=== PATIENT | female | born 1985 | race Caucasian/White ===

== ENCOUNTER → 2023-02-06 09:22 | Outpatient (CLI) | payer OTHER, SELFPAY | PROVIDERS: PCP Nurse Practitioner; Referring Provider Nurse Practitioner; Visit Provider Nurse Practitioner | DX: Z34.90 Encounter for supervision of normal pregnancy, unspecified, unspecified trimester (principal) | CPT/HCPCS: 36415; 84702 ==

== ENCOUNTER → 2023-02-10 09:26 | Outpatient (CLI) | payer OTHER, SELFPAY ==
[2023-02-10 10:56] LABS: HCG Quantitative /Beta subunit 1335.3 mIU/mL
[2023-02-10 11:07] LABS: Thyroid Stimulating Hormone 1.27 uIU/mL (0.47-4.68)
== END ==
PROVIDERS: PCP Nurse Practitioner; Referring Provider Nurse Practitioner; Visit Provider Nurse Practitioner
DX: Z31.41 Encounter for fertility testing (principal)
CPT/HCPCS: 36415; 84443; 84702

== ENCOUNTER → 2023-03-30 14:47 | Outpatient (CLI) | payer OTHER, SELFPAY ==
[2023-03-30 15:22] LABS: Miscellaneous to LabCorp NATERA
[2023-03-30 16:06] LABS: Add Manual Diff / Slide Review NO; Basophils Absolute Auto 0 /uL (0-100); Basophils Percent Auto 0.2 % (0-2); Eosinophils Absolute Auto 200 /uL (0-450); Eosinophils Percent Auto 2.2 % (2-4); Hematocrit 38.2 % (36-46); Hemoglobin 13.5 g/dL (12.0-16.0); Lymphocytes Absolute Auto 2100 /uL (1100-4500); Lymphocytes Percent Auto 20.3 % (25-40); Mean Corpuscular HGB Conc 35.3 % (30-36); Mean Corpuscular Hemoglobin 29.8 PG (26-34); Mean Corpuscular Volume 84.4 fL (80-100); Monocytes Absolute Auto 700 /uL (0-900); Monocytes Percent Auto 6.3 % (3-14); Neutrophils Absolute Auto 7400 /uL (1500-7000); Platelet Count 266 X10^3/uL (150-400); Red Blood Cell Count 4.52 X10^6/uL (4.0-5.2); Red Cell Distribution Width 13.2 % (11.6-14.8); White Blood Cell Count 10.5 X10^3/uL (4.5-11.0)
[2023-03-30 19:26] LABS: Urine N gonorrhoeae NOT DETECTED
[2023-03-30 19:35] LABS: Urine Chlamydia NOT DETECTED
[2023-03-31 08:26] LABS: RPR Screen Non Reactive (Non Reactive)
[2023-03-31 09:12] LABS: Varicella IgG Antibody 1518 index (Immune >165)
[2023-03-31 20:46] LABS: Hepatitis B Surface Antigen NEGATIVE s/c (NEGATIVE); Rubella Antibody IgG 63.1 IU/mL (>15)
[2023-03-31 21:02] LABS: HIV 1 & 2 Ab/Ag 4th Gen Combo NEGATIVE (NEGATIVE); Hep C Virus Ab w/Reflex Quant NEGATIVE s/c (NEGATIVE)
== END ==
PROVIDERS: Obstetrics & Gynecology; PCP Nurse Practitioner; Referring Provider Student in an Organized Health Care Education/Training Program; Visit Provider Student in an Organized Health Care Education/Training Program
DX: O09.511 Supervision of elderly primigravida, first trimester (principal); O09.819 Supervision of pregnancy resulting from assisted reproductive technology, unspecified trimester; Z3A.12 12 weeks gestation of pregnancy
CPT/HCPCS: 80055; 86787; 86803; 86850; 86900; 86901; 87086; 87389; 87491; 87591

== ENCOUNTER → 2023-05-22 10:48 | Outpatient (CLI) | payer OTHER, SELFPAY ==
[2023-05-29 12:07] LABS: AFP Value 31.8 ng/mL (.); Gestational Age EDD (.); Insulin Dep Diabetes No (.); OSBR Risk 1IN 10000 (.); Results Report (.); Test Results *Screen Negative* (.)
== END ==
LOC: LAB 10:50
PROVIDERS: PCP Nurse Practitioner; Referring Provider Student in an Organized Health Care Education/Training Program; Visit Provider Student in an Organized Health Care Education/Training Program
DX: Z34.02 Encounter for supervision of normal first pregnancy, second trimester (principal); Z3A.16 16 weeks gestation of pregnancy
CPT/HCPCS: 36415; 82105

== ENCOUNTER → 2023-05-27 14:09 | Outpatient (CLI) | payer OTHER, SELFPAY ==
--- NOTE | 2023-05-27 14:11 | DI.US.S_ITS ---
PROCEDURE: US OB >= 14 WEEKS FETUS INDICATIONS: ANATOMY OUTSIDE/PRIOR DATING DATA: Last menstrual period (LMP): 01/09/2023. LMP-based estimated date of delivery (MITCH): 10/16/2023. First dating scan (date and location): 02/27/2023. Estimated date of delivery (MITCH) from first dating scan: 10/17/2023. The calculations are made using the working MITCH of 10/16/2023. TECHNIQUE: Real-time scanning was performed of the fetus, with image documentation and biometric measurements. Endovaginal scanning: Not performed COMPARISON: None. FINDINGS: General: A single living intrauterine gestation is present. Presentation: Breech. Placenta: Placental position is anterior , without previa. Amniotic fluid index: 19.1 cm, normal range is 5-24 cm. . heart rate: 162 beats per minute. Maternal cervical canal: 2.8 cm long. Normal lower limit is 2.5 cm. biometrics: Biparietal diameter: 4.6 cm, 20 weeks 0 days Head circumference: 17.1 cm, 19 weeks 5 days Abdominal circumference: 15.4 cm, 20 weeks 4 days Femur length: 3.4 cm, 20 weeks 3 days Clinically estimated gestational age: 19 weeks 5 days Composite gestational age from present scan: 20 weeks 1 day Estimated weight and percentile: 354 g, 85th percentile Anatomic survey: Neuro: Ventricles are non-dilated at less than 10 mm. Cisterna magna is normal at 3-11 mm. Cerebellum is normal in size and morphology. Nuchal skin fold: Normal at less than 6 mm between 14-21 weeks gestational age. Face: Nose and lips are normal. Facial profile grossly within normal limits. Limited evaluation of mandible in chin secondary to lie. Spine: Sacral spine not well seen Heart: Outflow tracks within normal limits. 4 chamber view not well seen. Diaphragm: Diaphragm is intact. Stomach: Abdominal situs not well identified. Question double bubble appearance of stomach Kidneys: Bilateral kidneys not well seen Cord: Three-vessel cord not well seen Bladder: Normal in size. Extremities: All 4 extremities identified. Technically difficult study secondary to severe anti flexion of the uterus at the cervix with the fetus in sergio breech for most of the study. The cervix is borderline short, measuring 2.8 cm. IMPRESSION: 1. Living 2nd trimester intrauterine . Current age correlates with clinical age. 2. Highly challenging study technically secondary to lie and angulation of uterus. Findings include inability to determine situs, possible pleural effusion, possible double bubble appearance of stomach. Additionally, kidneys and three-vessel cord not well seen. Sacral spine not well seen. Additionally, cervical length is near lower limits of normal. Comment: Recommend referral to a tertiary center for repeat anatomy study. We strive to produce accurate, complete, and clear reports of imaging services. To assist us in improving patient care, this report was composed using standard report templates and voice recognition software. Therefore, it may contain abnormal punctuation, insertions and/or omissions. Occasional wrong-word or sound-alike substitutions may occur. Though we review the report and make efforts to correct it, we do recommend that the report be read carefully in proper context to recognize any text inaccuracies. Dictated by: Hawk Vogel M.D. on 05/27/2023 at 17:38 Approved by: Hawk Vogel M.D. on 05/27/2023 at 17:48
== END ==
PROVIDERS: PCP Nurse Practitioner; Referring Provider Student in an Organized Health Care Education/Training Program; Visit Provider Student in an Organized Health Care Education/Training Program
DX: Z34.02 Encounter for supervision of normal first pregnancy, second trimester (principal); Z3A.20 20 weeks gestation of pregnancy
CPT/HCPCS: 76811; 76817

== ENCOUNTER → 2023-08-06 09:01 | Outpatient (CLI) | payer OTHER, SELFPAY ==
[2023-08-06 11:30] LABS: Hemoglobin 11.3 g/dL (12.0-16.0)
[2023-08-06 20:22] LABS: GTT (PREG) 1 Hour PP 50gm Dose 129 mg/dL (76-139)
== END ==
PROVIDERS: PCP Nurse Practitioner; Referring Provider Student in an Organized Health Care Education/Training Program; Visit Provider Student in an Organized Health Care Education/Training Program
DX: Z34.02 Encounter for supervision of normal first pregnancy, second trimester (principal); Z3A.26 26 weeks gestation of pregnancy
CPT/HCPCS: 36415; 82950; 85014; 85018

== ENCOUNTER 2023-09-01 16:04 | Outpatient (CLI) | payer OTHER, SELFPAY ==
[2023-09-01] MEDS: BETAMETHASONE 30 MG/5 ML MDV 12 MG IM (16:21)
== END 2023-09-01 16:30 | disposition home or self-care (01) ==
LOC: LABOR 16:35 → OB 09-02 08:26
PROVIDERS: PCP Nurse Practitioner; Referring Provider Student in an Organized Health Care Education/Training Program; Visit Provider Student in an Organized Health Care Education/Training Program
DX: O09.813 Supervision of pregnancy resulting from assisted reproductive technology, third trimester (principal); O09.513 Supervision of elderly primigravida, third trimester; O41.03X0 Oligohydramnios, third trimester, not applicable or unspecified; Z3A.33 33 weeks gestation of pregnancy
CPT/HCPCS: 96372; G0378; G0379; J0702

== ENCOUNTER 2023-09-02 16:07 | Outpatient (CLI) | payer OTHER, SELFPAY ==
[2023-09-02] MEDS: BETAMETHASONE 30 MG/5 ML MDV 12 MG IM (16:50)
== END 2023-09-02 17:08 | disposition home or self-care (01) ==
LOC: OB 09-07 06:17
PROVIDERS: PCP Nurse Practitioner; Referring Provider Student in an Organized Health Care Education/Training Program; Visit Provider Student in an Organized Health Care Education/Training Program
DX: O09.513 Supervision of elderly primigravida, third trimester (principal); O41.03X0 Oligohydramnios, third trimester, not applicable or unspecified; O09.813 Supervision of pregnancy resulting from assisted reproductive technology, third trimester; Z3A.33 33 weeks gestation of pregnancy
CPT/HCPCS: 59025; 96372; G0378; G0379; J0702

== ENCOUNTER 2023-09-10 10:03 | Observation (INO) | payer OTHER, SELFPAY ==
--- NOTE | 2023-09-10 10:06 | DI.US.S_ITS ---
PROCEDURE: US OB >= 14 WEEKS FETUS INDICATIONS: REGINA OUTSIDE/PRIOR DATING DATA: Last menstrual period (LMP): January 09, 2023. LMP-based estimated date of delivery (MITCH): October 16, 2023. First dating scan (date and location): February 27, 2023. Estimated date of delivery (MITCH) from first dating scan: October 17, 2023. The calculations are made using the ultrasound MITCH of October 17, 2023. TECHNIQUE: Real-time scanning was performed of the fetus, with image documentation and biometric measurements. Endovaginal scanning: Performed. COMPARISON: [facility], OB >= 14 WEEKS FETUS, 05/27/2023, 14:19. [facility], OB <= 14 WEEKS FETUS, 03/27/2023, 9:51. FINDINGS: General: A single living intrauterine gestation is present. Presentation: Vertex. Placenta: Placental position is anterior , without previa. Amniotic fluid index: 6.8 cm, normal range is 5-24 cm. Single deepest vertical pocket is 3.4 cm. heart rate: 136 beats per minute. Maternal cervical canal: Not well seen due to head position as well as empty bladder at time of imaging and cannot be evaluated. Clinically estimated gestational age: 34 weeks 6 days Anatomic survey: Neuro: Ventricles are non-dilated at less than 10 mm. Cisterna magna is normal at 3-11 mm. Cerebellum is normal in size and morphology. Nuchal skin fold: Normal at less than 6 mm between 14-21 weeks gestational age. Face: Nose and lips, facial profile are normal. Spine: No evidence for spina bifida. Heart: 4-chambered heart is present, with normal ventricular outflow tracts. Diaphragm: Diaphragm is intact. Stomach: Left-sided stomach is present. Kidneys: No hydronephrosis. Normal is less than 5 mm in 2nd trimester, less than 7 mm in 3rd trimester. Cord: 3-vessel cord has orthotopic insertion. Bladder: Normal in size. Extremities: All 4 extremities identified. IMPRESSION: Single living intrauterine . Amniotic fluid index 6.8 centimeters with largest pocket measuring 3.4 centimeters. Dictated by: Kaleigh Mancera MD, PhD on 09/10/2023 at 11:44 Approved by: Kaleigh Mancera MD, PhD on 09/10/2023 at 11:48
== END 2023-09-10 11:00 | disposition home or self-care (01) ==
PROVIDERS: Admitting Provider Obstetrics & Gynecology; PCP Nurse Practitioner; Referring Provider Obstetrics & Gynecology; Visit Provider Obstetrics & Gynecology
DX: O09.513 Supervision of elderly primigravida, third trimester (principal); O41.03X0 Oligohydramnios, third trimester, not applicable or unspecified; O09.813 Supervision of pregnancy resulting from assisted reproductive technology, third trimester; Z3A.34 34 weeks gestation of pregnancy
CPT/HCPCS: 59025; 76811; G0378; G0379

== ENCOUNTER 2023-09-18 10:35 | Outpatient (CLI) | payer OTHER, SELFPAY ==
--- NOTE | 2023-09-18 11:11 | P.TNLD_ITS ---
Visit Information Visit Information Date of evaluation: 09/18/23 Primary OB Provider: Janine Osuna Reason for Evaluation: Yes non-stress test Comments/Additional reasons for admission: Borderline oligohydramnios Vital Signs Vital Signs: Reviewed in obix, within normal parameters [facility] Medical History (Updated 08/31/23 @ 13:06 by Janine Osuna DO) Encounter for fertility testing Migraine without aura Chicken pox Abnormal Pap smear of cervix (~2008) Surgical History (Updated 03/10/23 @ 10:42 by Cyndie Carrasquillo RN) [place] teeth extracted H/O foot surgery Anesthesia H/O LEEP (~2008) Left ACL tear (~2000) Family History (Updated 03/10/23 @ 10:45 by Cyndie Carrasquillo RN) Mother Diabetes mellitus Hypertension Grandfather Diabetes mellitus Hypertension Grandmother Diabetes mellitus Hypertension Grandfather Diabetes mellitus Hypertension Grandmother Diabetes mellitus Hypertension End stage kidney disease Social History marital status: number of children: 0 household members: spouse lives independently: Yes caregiver/support person: No housing: house pets and animals: Yes (dogs, cat, poultry birds) education level: college (associate's degree) 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[employer]) current occupational exposures/hazards: No special angelique needs: No travel history: over 6 months ago seatbelt use: always helmet use: Yes water heater temp set < 120 deg: Yes working smoke detector in home: Yes fire extinguisher in home: Yes carbon monox detector in home: Yes firearms in home: No do you feel safe at home: Yes (answered with on speaker phone in the room) Smoking Status: Never smoker second hand exposure: No alcohol intake: former (very occasionally when not ) substance use type: does not use during the past year weight has: remained stable well-balanced diet: daily or most days daily servings fruits/ve or more times/day caffeine: Yes (1 cup black tea or coffee in AM) Type(s) of exercise: walking, resistance training and other (hiking) frequency: 3-4 times per week Evaluation Evaluation Baseline heart rate: 130 Variability: Moderate (11-25) monitor accelerations: Present Monitor Decelerations: Absent Category of Tracing: Reactive Diagnosis, Plan/Disposition Final Diagnosis (1) renal anomaly: Status: Acute (2) Advanced maternal age (AMA) in : Status: Acute (3) conceived through in vitro fertilization: Status: Acute Plan/Disposition Plan: 37yo at 36+0wks here for weekly NST. She had her amniotic fluid checked this week on Thursday with MFM, and was told it was REGINA 6.8. She has followup next week with [facility] on 09/21. -pt to f/u with our OB clinic once she gets final recs from [facility] next week regarding timing of delivery OB Disposition: home
== END 2023-09-18 11:25 | disposition home or self-care (01) ==
LOC: LABOR 10:49 → OB 09-21 06:12
PROVIDERS: PCP Nurse Practitioner; Referring Provider Student in an Organized Health Care Education/Training Program; Visit Provider Student in an Organized Health Care Education/Training Program
DX: O35.EXX0 Maternal care for other (suspected) fetal abnormality and damage, fetal genitourinary anomalies, not applicable or unspecified (principal); O09.513 Supervision of elderly primigravida, third trimester; O09.813 Supervision of pregnancy resulting from assisted reproductive technology, third trimester; Z3A.36 36 weeks gestation of pregnancy
CPT/HCPCS: 59025; G0378; G0379

== ENCOUNTER 2023-09-25 10:04 | Outpatient (CLI) | payer OTHER, SELFPAY ==
--- NOTE | 2023-09-25 10:36 | P.TNLD_ITS ---
Visit Information Visit Information Date of evaluation: 09/25/23 Primary OB Provider: Janine Osuna On-call OB Provider: Tammi Martines Reason for Evaluation: Yes non-stress test non-stress test reason: other (Borderline oligohydramnios) Vital Signs Vital Signs: Blood pressure 111/58, pulse 68, temperature 36.6? [facility] Medical History (Updated 09/25/23 @ 10:38 by Tammi Martines MD) Encounter for fertility testing Migraine without aura Chicken pox Abnormal Pap smear of cervix (~2008) Surgical History (Updated 03/10/23 @ 10:42 by Cyndie Carrasquillo, RN) [place] teeth extracted H/O foot surgery Anesthesia H/O LEEP (~2008) Left ACL tear (~2000) Family History (Updated 03/10/23 @ 10:45 by Cyndie Carrasquillo, RN) Mother Diabetes mellitus Hypertension Grandfather Diabetes mellitus Hypertension Grandmother Diabetes mellitus Hypertension Grandfather Diabetes mellitus Hypertension Grandmother Diabetes mellitus Hypertension End stage kidney disease Social History marital status: number of children: 0 household members: spouse lives independently: Yes caregiver/support person: No housing: house pets and animals: Yes (dogs, cat, poultry birds) education level: college (associate's degree) 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 occupational exposures/hazards: No special angelique needs: No travel history: over 6 months ago seatbelt use: always helmet use: Yes water heater temp set < 120 deg: Yes working smoke detector in home: Yes fire extinguisher in home: Yes carbon monox detector in home: Yes firearms in home: No do you feel safe at home: Yes (answered with on speaker phone in the room) Smoking Status: Never smoker second hand exposure: No alcohol intake: former (very occasionally when not ) substance use type: does not use during the past year weight has: remained stable well-balanced diet: daily or most days daily servings fruits/ve or more times/day caffeine: Yes (1 cup black tea or coffee in AM) Type(s) of exercise: walking, resistance training and other (hiking) frequency: 3-4 times per week Review of Systems Review of Systems Narrative: No labor symptoms. Good movement. No rupture membranes. Evaluation Evaluation Baseline heart rate: 130 Variability: Moderate (11-25) monitor accelerations: Present Monitor Decelerations: Absent Category of Tracing: Reactive Status: Category l Diagnosis, Plan/Disposition Final Diagnosis (1) Advanced maternal age (AMA) in : Status: Acute (2) Abnormal ultrasound: Status: Acute (3) 37 weeks gestation of : Status: Acute Plan/Disposition Plan: Reactive nonstress test. Follow-up routine OB visit. OB Disposition: home
== END 2023-09-25 10:35 | disposition home or self-care (01) ==
LOC: LABOR 10:20 → OB 09-28 10:26
PROVIDERS: PCP Nurse Practitioner; Referring Provider Student in an Organized Health Care Education/Training Program; Visit Provider Student in an Organized Health Care Education/Training Program
DX: O41.03X0 Oligohydramnios, third trimester, not applicable or unspecified (principal); O09.513 Supervision of elderly primigravida, third trimester; Z3A.37 37 weeks gestation of pregnancy
CPT/HCPCS: 59025; G0378; G0379

== ENCOUNTER → 2023-09-28 10:11 | Outpatient (CLI) | payer OTHER, SELFPAY ==
[2023-09-29 15:15] LABS: Strep Grp B PCR NEG for Grp B Strep
== END ==
PROVIDERS: PCP Nurse Practitioner; Visit Provider Student in an Organized Health Care Education/Training Program
DX: Z34.83 Encounter for supervision of other normal pregnancy, third trimester (principal); Z3A.37 37 weeks gestation of pregnancy
CPT/HCPCS: 87653

== ENCOUNTER 2023-09-29 09:08 | Outpatient (CLI) | payer OTHER, SELFPAY ==
--- NOTE | 2023-09-29 10:19 | PM.OBTRLD ---
Visit Information Visit Information Date of evaluation: 09/29/23 Primary OB Provider: Janine Osuna Reason for Evaluation: Yes non-stress test Vital Signs Vital Signs: BP 116/69, P 77 PFSH Medical History (Updated 09/25/23 @ 10:38 by Tammi Martines MD) Encounter for fertility testing Migraine without aura Chicken pox Abnormal Pap smear of cervix (~2008) Surgical History (Updated 03/10/23 @ 10:42 by Cyndie Carrasquillo, RN) [place] teeth extracted H/O foot surgery Anesthesia H/O LEEP (~2008) Left ACL tear (~2000) Family History (Updated 03/10/23 @ 10:45 by Cyndie Carrasquillo, JOSIE) Mother Diabetes mellitus Hypertension Grandfather Diabetes mellitus Hypertension Grandmother Diabetes mellitus Hypertension Grandfather Diabetes mellitus Hypertension Grandmother Diabetes mellitus Hypertension End stage kidney disease Social History marital status: number of children: 0 household members: spouse lives independently: Yes caregiver/support person: No housing: house pets and animals: Yes (dogs, cat, poultry birds) education level: college (associate's degree) 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 exposures/hazards: No special angelique needs: No travel history: over 6 months ago seatbelt use: always helmet use: Yes water heater temp set < 120 deg: Yes working smoke detector in home: Yes fire extinguisher in home: Yes carbon monox detector in home: Yes firearms in home: No do you feel safe at home: Yes (answered with on speaker phone in the room) Smoking Status: Never smoker second hand exposure: No alcohol intake: former (very occasionally when not ) substance use type: does not use during the past year weight has: remained stable well-balanced diet: daily or most days daily servings fruits/ve or more times/day caffeine: Yes (1 cup black tea or coffee in AM) Type(s) of exercise: walking, resistance training and other (hiking) frequency: 3-4 times per week Evaluation Evaluation Baseline heart rate: 130 Variability: Moderate (11-25) monitor accelerations: Present Monitor Decelerations: Absent Category of Tracing: Reactive Diagnosis, Plan/Disposition Final Diagnosis (1) conceived through in vitro fertilization: Status: Acute Plan/Disposition Plan: Plan for IOL tomorrow due to MFM recommendations. OB Disposition: home
== END 2023-09-29 10:00 | disposition home or self-care (01) ==
LOC: LABOR 09:56 → OB 10-01 12:17
PROVIDERS: PCP Nurse Practitioner; Referring Provider Student in an Organized Health Care Education/Training Program; Visit Provider Student in an Organized Health Care Education/Training Program
DX: O09.813 Supervision of pregnancy resulting from assisted reproductive technology, third trimester (principal); Z3A.37 37 weeks gestation of pregnancy
CPT/HCPCS: 59025; G0378; G0379

== ENCOUNTER 2023-09-30 09:05 | Outpatient (CLI) | payer OTHER, SELFPAY ==
[2023-09-30 09:57] VITALS: BP 138/77
--- NOTE | 2023-09-30 10:52 | P.TNLD_ITS ---
Visit Information Visit Information Date of evaluation: 09/30/23 Primary OB Provider: Jannie Osuna On-call OB Provider: Cesilia Pedraza Reason for Evaluation: Yes rupture of membranes Comments/Additional reasons for admission: +amnisure on arrival Vital Signs Vital Signs: Vital Signs - 8 hr 09/30/23 09:57 Blood Pressure 138/77 [facility] Medical History (Updated 09/25/23 @ 10:38 by Tammi Martines MD) Encounter for fertility testing Migraine without aura Chicken pox Abnormal Pap smear of cervix (~2008) Surgical History (Updated 03/10/23 @ 10:42 by Cyndie Carrasquillo, RN) [place] teeth extracted H/O foot surgery Anesthesia H/O LEEP (~2008) Left ACL tear (~2000) Family History (Updated 03/10/23 @ 10:45 by Cyndie Carrasquillo RN) Mother Diabetes mellitus Hypertension Grandfather Diabetes mellitus Hypertension Grandmother Diabetes mellitus Hypertension Grandfather Diabetes mellitus Hypertension Grandmother Diabetes mellitus Hypertension End stage kidney disease Social History marital status: number of children: 0 household members: spouse lives independently: Yes caregiver/support person: No housing: house pets and animals: Yes (dogs, cat, poultry birds) education level: college (associate's degree) 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 exposures/hazards: No special angelique needs: No travel history: over 6 months ago seatbelt use: always helmet use: Yes water heater temp set < 120 deg: Yes working smoke detector in home: Yes fire extinguisher in home: Yes carbon monox detector in home: Yes firearms in home: No do you feel safe at home: Yes (answered with on speaker phone in the room) Smoking Status: Never smoker second hand exposure: No alcohol intake: former (very occasionally when not ) substance use type: does not use during the past year weight has: remained stable well-balanced diet: daily or most days daily servings fruits/ve or more times/day caffeine: Yes (1 cup black tea or coffee in AM) Type(s) of exercise: walking, resistance training and other (hiking) frequency: 3-4 times per week Review of Systems Review of Systems ROS: Yes All systems reviewed with the patient and are negative except as otherwise documented Exam Vital Signs (past 8 hours): - 09/30/23 09:57 Blood Pressure 138/77 Narrative Exam Narrative: NAD Const General: cooperative and healthy appearing Nutritional Appearance: average body habitus and well nourished Orientation: alert, awake and oriented x3 Resp Effort & Inspection: normal respiratory effort Cardio Pulses: normal peripheral pulses GI Other: gravid, dawna cephalic 7# External Female Exam: normal external appearance Amniotic Fluid: clear Skin General: no rashes or lesions noted Neuro General: patient alert, patient awake and patient oriented x3 Diagnosis, Plan/Disposition Plan/Disposition Plan: 37yo G1 at 37w6d presents to triage for evaluation, +SROM confirmed on arrival without active labor Cat 1 tracing bedside US confirms cephalic presentation SVE 1/C/hi, difficult exam secondary to low station pt strongly desires to be discharged to home to await spontaneous labor; strict bleeding, FM and prolapse precautions reviewed. GBS negative. Pt in agreement to return to facility within 6h (max 1600 today) even if no further contractions at that time patient and spouse verbalized understanding and in agreement with plan of care OB Disposition: home (anticipate return at 1600 with admission at that time )
--- NOTE | 2023-09-30 17:40 | P.HPOB_ITS ---
OB HPI Date/Time Date of admission: 09/30/23 Date Patient Seen: 09/30/23 Time Patient Seen: 17:41 History of Present Condition Chief complaint: PROM : 1 Narrative: Silke Catalan is a 37 year old female [facility] Medical History (Updated 09/25/23 @ 10:38 by Tammi Martines MD) Encounter for fertility testing Migraine without aura Chicken pox Abnormal Pap smear of cervix (~2008) Surgical History (Updated 03/10/23 @ 10:42 by Cyndie Carrasquillo RN) [place] teeth extracted H/O foot surgery Anesthesia H/O LEEP (~2008) Left ACL tear (~2000) Family History (Updated 03/10/23 @ 10:45 by Cyndie Carrasquillo RN) Mother Diabetes mellitus Hypertension Grandfather Diabetes mellitus Hypertension Grandmother Diabetes mellitus Hypertension Grandfather Diabetes mellitus Hypertension Grandmother Diabetes mellitus Hypertension End stage kidney disease Social History marital status: number of children: 0 household members: spouse lives independently: Yes caregiver/support person: No housing: house pets and animals: Yes (dogs, cat, poultry birds) education level: college (associate's degree) 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 occupational exposures/hazards: No special angelique needs: No travel history: over 6 months ago seatbelt use: always helmet use: Yes water heater temp set < 120 deg: Yes working smoke detector in home: Yes fire extinguisher in home: Yes carbon monox detector in home: Yes firearms in home: No do you feel safe at home: Yes (answered with on speaker phone in the r oom) Smoking Status: Never smoker second hand exposure: No alcohol intake: former (very occasionally when not ) substance use type: does not use during the past year weight has: remained stable well-balanced diet: daily or most days daily servings fruits/ve or more times/day caffeine: Yes (1 cup black tea or coffee in AM) Type(s) of exercise: walking, resistance training and other (hiking) frequency: 3-4 times per week Meds Home Medications and Allergies Home Medications Medication Instructions Recorded Confirmed Type vitamin-ferrous sulfate tab PO 03/10/23 09/28/23 History 27 mg iron-folic acid 0.8 mg tablet Allergies Allergy/AdvReac Type Severity Reaction Status Date / Time No Known Drug Allergies Allergy Unverified 09/28/23 09:29 Assessment and Plan Time-Based Coding :: [TOTAL MINUTES] spent with patient and on the chart (including review of chart, obtaining history, exam, reviewing outside data, placing orders, documenting exam and treatment plan, and counseling patient) on [DATE].
[2023-09-30 18:24] LABS: Add Manual Diff / Slide Review NO; Basophils Absolute Auto 100 /uL (0-100); Basophils Percent Auto 0.5 % (0-2); Eosinophils Absolute Auto 300 /uL (0-450); Eosinophils Percent Auto 1.8 % (2-4); Hematocrit 36.6 % (36-46); Hemoglobin 12.4 g/dL (12.0-16.0); Lymphocytes Absolute Auto 2200 /uL (1100-4500); Lymphocytes Percent Auto 13.5 % (25-40); Mean Corpuscular HGB Conc 33.9 % (30-36); Mean Corpuscular Hemoglobin 29.2 PG (26-34); Mean Corpuscular Volume 86.2 fL (80-100); Monocytes Absolute Auto 1000 /uL (0-900); Monocytes Percent Auto 6.2 % (3-14); Neutrophils Absolute Auto 12700 /uL (1500-7000); Platelet Count 254 X10^3/uL (150-400); Red Blood Cell Count 4.24 X10^6/uL (4.0-5.2); Red Cell Distribution Width 14.9 % (11.6-14.8); White Blood Cell Count 16.3 X10^3/uL (4.5-11.0)
== END 2023-09-30 10:55 | disposition home or self-care (01) ==
LOC: LABOR 11:03 → OB 10-01 12:20
PROVIDERS: Obstetrics & Gynecology; PCP Nurse Practitioner; Referring Provider Student in an Organized Health Care Education/Training Program; Visit Provider Student in an Organized Health Care Education/Training Program
DX: O42.92 Full-term premature rupture of membranes, unspecified as to length of time between rupture and onset of labor (principal); Z3A.36 36 weeks gestation of pregnancy
CPT/HCPCS: 36415; 59025; 59050; 76815; 84112; 85025; 86850; 86900; 86901; G0378; G0379

== ENCOUNTER 2023-09-30 16:25 | Inpatient (IN) | payer OTHER, SELFPAY ==
[2023-09-30 18:33] VITALS: BP 130/80
[2023-09-30] MEDS: OXYTOCIN PREMIX 30 UNIT/500 ML PLAST..BAG IV (20:25)
--- NOTE | 2023-09-30 21:10 | PM.OBHP.1 ---
OB HPI Date/Time Date of admission: 09/30/23 Date Patient Seen: 09/30/23 Time Patient Seen: 16:00 History of Present Condition Chief complaint: PROM without onset of spontaneous labor : 1 Para: 0 Estimated Date of Delivery: 10/16/23 Estimated Gestational Age (weeks): 37w5d Narrative: Silke Catalan is a 37 year old female G1 at 37w5d by IVF dating who presents for admission following confirmed SROM at approximately 0600. Pt was seen and evaluated in triage this AM and requested she be allowed to labor at home for a few hours; reactive NST/cat 1 tracing with US confirmed cephalic presentation and pt discharged with strict precautions and planned readmission at 1600 if no prior onset of spontaneous labor. Pt arrived for admission at 1600 and endorses continued mild cramping and occasional distinct contractions without regular pattern. +FM, continued ongoing leakage of clear fluid. Antepartum course noteable for AMA, IVF , stage 1 HTN, prior borderline oligohydramnios (resolved), co-management with [facility] A[facility]. Pt was initially sent to [facility] for completion of inadequate visualization at time of FAS as well as echo in setting of IVF . 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 Pt had routine surveillance per [facility] evaluation pt was cleared for delivery at local facility with recommendation for IOL at 38wga and had previously received BMZ x2 on 08/31-. Indications Other reason(s) for admission: PROM at early term without onset of spontaneous labor History of Present care: good care Dating criteria: other (IVF dating ) Abnormal ultrasound findings: as per HPI, see scanned [facility] consult documentation Obstetrical complications: other (stage 1 maternal CHTN, no medications ) Medical complications: other (h/o prior LEEP x2) Preadmission Labs Blood type: A (+) positive -: Antibody screen: negative, Cystic fibrosis screen: negative, GBS status: negative, HBsAG: negative, HIV: negative, HSV 1: unknown, HSV 2: unknown and RPR/VDLR: negative -: Chlamydia screen: not detected and Gonorrhea screen: not detected -: Rubella: immune and Varicella: immune HCT: 36.6 Cell-free DNA: low-risk, XX 1 hr GTT: 129 Evaluation Evaluation Baseline heart rate: 145 Variability: Moderate (11-25) monitor accelerations: Present Monitor Decelerations: Absent Contraction Frequency (minutes): 7 Uterine Contraction Intensity: Mild Category of Tracing: Reactive Status: Category l Dilation (cm): 1 Effacement (%): 100 Dilation: 1-2 cm Effacement: >/=80% station: +2 Position of cervix: mid Consistency: soft Smith score: 10 [facility] Medical History (Updated 09/25/23 @ 10:38 by Tammi Martines MD) Encounter for fertility testing Migraine without aura Chicken pox Abnormal Pap smear of cervix (~2008) Surgical History (Updated 03/10/23 @ 10:42 by Cyndie Carrasquillo RN) Lyman teeth extracted H/O foot surgery Anesthesia H/O LEEP (~2008) Left ACL tear (~2000) Family History (Updated 03/10/23 @ 10:45 by Cyndie Carrasquillo RN) Mother Diabetes mellitus Hypertension Grandfather Diabetes mellitus Hypertension Grandmother Diabetes mellitus Hypertension Grandfather Diabetes mellitus Hypertension Grandmother Diabetes mellitus Hypertension End stage kidney disease Social History marital status: number of children: 0 household members: spouse lives independently: Yes caregiver/support person: No housing: house pets and animals: Yes (dogs, cat, poultry birds) education level: college (associate's degree) 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[employer]) current occupational exposures/hazards: No special angelique needs: No travel history: over 6 months ago seatbelt use: always helmet use: Yes water heater temp set < 120 deg: Yes working smoke detector in home: Yes fire extinguisher in home: Yes carbon monox detector in home: Yes firearms in home: No do you feel safe at home: Yes (answered with on speaker phone in the room) Smoking Status: Never smoker second hand exposure: No alcohol intake: former (very occasionally when not ) substance use type: does not use during the past year weight has: remained stable well-balanced diet: daily or most days daily servings fruits/ve or more times/day caffeine: Yes (1 cup black tea or coffee in AM) Type(s) of exercise: walking, resistance training and other (hiking) frequency: 3-4 times per week Meds Home Medications and Allergies Home Medications Medication Instructions Recorded Confirmed Type vitamin-ferrous sulfate tab PO 03/10/23 09/28/23 History 27 mg iron-folic acid 0.8 mg tablet Allergies Allergy/AdvReac Type Severity Reaction Status Date / Time No Known Drug Allergies Allergy Unverified 09/28/23 09:29 Review of Systems Review of Systems ROS: Yes All systems reviewed with the patient and are negative except as otherwise documented OB Exam Vital signs Blood Pressure: 130/78 Pulse Rate: 80 Respiratory Rate: 18 Temperature: 97.9 F HENMT Head: normal to inspection Eyes General: appearance normal, both eyes and all related structures Resp Effort & Inspection: normal respiratory effort Cardio Rate: regular rate Extremities Lower extremity: Yes normal to inspection GI Inspection: normal to inspection Other: gravid, size approx dates; dawna cephalic 6.5-7# External Female Exam: Yes normal external appearance Presentation: vertex Estimated Weight (lbs): 7 Amniotic Fluid: clear Assessment and Plan Assessment and Plan Assessment and Plan narrative: 37yo G1 at 37w5d by IVF dating presents for admission and labor augmentation, PROM earlier today without onset of spontaneous labor PROM without onset of spontaneous labor Pt amenable to pitocin augmentation, will plan to start pending staffing availability (anticipated within 2h) maternal VSS/afebrile, Cat 1 tracing GBS negative, plan to start IV ppx at 18h (2200) per protocol h/o maternal LEEP x2 (2008, 2011), palpable rim of scar tissue on exam (1-2cm dilated however 100% effaced); digitally disrupted at time of admission exam, RN aware of challenging exam with request for MD exam prior to any maternal expulsive efforts Abnormal amniocentesis, unknown clinical significance 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 Anticipate vaginal delivery Time-Based Coding :: 30 minutes spent with patient and on the chart (including review of chart, obtaining history, exam, reviewing outside data, placing orders, documenting exam and treatment plan, and counseling patient) on 09/30/23.
[2023-09-30 21:37] VITALS: BP 130/78; PULSE 80; RESP 18; TEMP 36.6
[2023-09-30] MEDS: AMPICILLIN 2,000 MG in SODIUM CHLORIDE 0.9% 100 ML 200 MG IV (22:29)
[2023-10-01] VITALS (10 sets, daily range): BP systolic 133–147; BP diastolic 59–89; PULSE 97–111; RESP 15–22; TEMP 36.8–37.7; O2SAT 98–100
[2023-10-01] MEDS: TERBUTALINE 1 MG/ML VIAL 0.25 MG SUBCUT (00:20)
[2023-10-01 01:50] LABS: Hematocrit 28.9 % (36-46); Hemoglobin 9.7 g/dL (12.0-16.0); Mean Corpuscular HGB Conc 33.8 % (30-36); Mean Corpuscular Hemoglobin 29.2 PG (26-34); Mean Corpuscular Volume 86.6 fL (80-100); Platelet Count 186 X10^3/uL (150-400); Red Blood Cell Count 3.33 X10^6/uL (4.0-5.2); Red Cell Distribution Width 14.8 % (11.6-14.8); White Blood Cell Count 26.2 X10^3/uL (4.5-11.0)
[2023-10-01 01:51] LABS: Add Manual Diff / Slide Review YES; Fibrinogen 389 mg/dL (238-498)
[2023-10-01] MEDS: BUPIVACAINE 0.5% (PF) 30 ML VIAL INJ (01:54)
--- NOTE | 2023-10-01 01:59 | SUR.OPER ---
Supine on padded OR bed, head on pillow, arms secured on padded arm boards at <90 degrees abduction, legs uncrossed, safety belt at thigh, tape over blanket over lower legs.
[2023-10-01 02:07] LABS: Neutrophils Absolute Manual 22270 /uL (3000-5900); RBC Morphology Normal Morphology; Total Cells Counted 100
[2023-10-01] MEDS: CEFAZOLIN VIAL 1 GM in SODIUM CHLORIDE 0.9% 100 ML IV (02:31)
--- NOTE | 2023-10-01 02:33 | SUR.OPER ---
BABY GIRL DELIVERED @ 0056. APGARS UNAVAILABLE. Avis MCCAIN RN.
[2023-10-01] MEDS: fentaNYL 100 MCG/2 ML INJ IV ×4 (02:42→02:58)
[2023-10-01] MEDS: MEPERIDINE 50 MG/ML INJ 12.5 MG IV (02:43)
[2023-10-01] MEDS: LACTATED RINGERS 1,000 ML 100 ML IV ×2 (02:59→08:06)
--- NOTE | 2023-10-01 03:03 | P.PNOB_ITS ---
Date/Time Date Patient Seen: 10/01/23 Time Patient Seen: 23:50 Pain Control Pain control: epidural Pelvic Exam Dilation (cm): 10 Effacement (%): 100 station: +2 Contractions Pitocin rate (mU/min): 6 Contraction frequency (min): 2 Contraction pattern: Regular Contraction intensity: Mild Status status: Category ll Monitor Accelerations: Present Monitor Decelerations: Episodic Monitor Variability: Moderate Assessment and Plan Plan: other Comments: Delayed documentation secondary to intervening patient care Called per bedside RN at 2344 that patient had c/o sudden sharp vaginal pain while sitting on toilet followed by spontaneous rupture of prior palpated forebag after which patient immediately and involuntarily began to push. Instructions given to have patient return to bed for exam. MD at bedside 2350, initial exam C/C/+2. Difficulty with external monitoring per CEFM, however audible deceleration with nelli to 55bpm. Pitocin off prior to MD arrival, multiple intrauterine resuscitation measures performed and ultimately administration of 0.25mg SQ terbutaline at 0006 in tandem with application of FSE. Noted slow recovery of FHR to baseline 90-105 however notable shift in baseline. At this time MD requested that OR team and airline customer service agent be called in adventism of need for emergent delivery. With improved maternal analgesia with inhaled nitrous a more thorough SVE was performed which noted pt was only 9cm dilated with a remaining tight rim of palpable cervical scar anteriorly. Pt unable to refrain from involuntary pushing and with concern for diminishing reserve decision made to proceed to OR. cat II tracing at that time. 234 - MD called 2355 - MD at bedside 0006 - terbutaline administered, FSE applied 0008 - on-call team/OR activated 0028 - second dose terbutaline 0036 - decision
[2023-10-01] MEDS: HYDROMORPHONE 1 MG INJ IV ×4 (03:14→22:11)
--- NOTE | 2023-10-01 03:16 | P.OP_ITS ---
Operative Date/Time/Diagnoses Date of procedure: 10/01/23 Time of procedure: 03:16 Pre-op diagnosis: 1) IUP at 37w5d; 2) non-reassuring surveillance remote from delivery Post-op diagnosis: other (1) s/p primary low transverse section ) Procedure & Clinicians Procedure: primary low transverse section Same procedure as scheduled: Yes Indications: 1) IUP at 37w5d; 2) non-reassuring surveillance remote from delivery Surgeon: Cesilia Pedraza [facility] Admissions Clerk: Jaspreet Serrano Anesthesia Type: General Operative Notes Findings: term female in cephlic presentation, severe impaction of head evidence of cephalopelvic disproportion, would recommend repeat delivery with future pregnancies Closure Type: primary Specimen(s): none sent Estimated Blood Loss (mL): 1,500 Blood products transfused: none Procedure in detail: Pt was taken to the operating room and transferred to OR table.? Decision made to proceed under general anesthesia secondary to severely inadequate maternal analgesia with inability to sit for neuraxial procedure.? The patient was placed in the supine position and a jones catheter placed and maternal abdomen was surgically prepped. Upon surgical provider re-entering operating theater following scrubbing it was discovered that patient had already had general anesthesia induced per anesthesia and was fully intubated on surgeon's entry into the room. Patient was expeditiously draped while a time out was performed and remainder of case was performed under stat procedure/modified Ejan method secondary to concern for prolonged exposure to general anesthesia. ?A obstetric nurse was in place at time of surgical draping to provide vaginal elevation of the head. A pfannensteil incision was made 2cm superior to the pubic symphysis.? This incision was carried down sharply to the level of the rectus fascia. The fascia was incised sharply with knife and the incision was extended bilaterally bluntly. The rectus muscles were then in the midline and the pe ritoneum was identified.? The peritoneum was entered bluntly under direct visualization.? The peritoneal opening was then extended manually.?The bladder blade was then inserted. A low transverse incision was made in the uterus using the knife.? The incision was extended laterally and superiorly bilaterally bluntly.? The numerical control drill press operator?s hand was then inserted into the uterus to find an infant in the vertex OP position.? The bladder blade was removed and the 's vertex was able to be grasped however unable to be elevated secondary to severe impaction further complicated by uterine contraction. Difficulty with extraction announced to the room, continued attempts at head elevation both with grasping of the vertex as well as elevation of the head from the vagina. Uterine relaxation agents (terbutaline, nitroglycerin) requested but unavailable. After 4 minutes of repeated and continual attempts at elevation of the head the vertex was finally able to be rotated with release of impaction, followed by elevation of the head to the level of the hysterotomy with rapid delivery of body thereafter. The umbilical cord was expeditiously clamped and cut and the was taken to the waiting warmer for further evaluation and resuscitation. The placenta was delivered with gentle manual traction and passed off the field. The uterus was exteriorized and the uterine cavity was wiped of all clots and debris.? The bladder blade was reinserted and the hysterotomy incision was closely inspected with noted extension of the hysterotomy deep to the level of the cervix on the R. The hysterotomy was repaired with 2 #0 vicryl in a running locked fashion, followed by a second #0 vicryl in an imbricating fashion.? An O'Elrosa hemostasis ligation was performed x2 on the R uterine a rtery with subsequently noted hemostasis. Tubes, ovaries and adnexae were visualized and noted to be grossly normal in appearance.? The uterus was replaced into the abdomen without difficulty and the hysterotomy was noted to be hemostatic off of tension.? The anterior abdominal peritoneum was reapproximated using 3-0 vircryl in a running fashion. The rectus fascia was closed using #1 vicryl in a running fashion.? The incision was irrigated and hemostasis was achieved using the bovie.? The subcutaneous space was reapproximated using plain gut suture in a running fashion.? The skin was closed using 4-0 monocryl followed by application of LAINA dressing.? Fundal contents were expressed and fundus noted to be firm, level noted prior to patient transfer to PACU in stable condition.? Note primary surgeon of case was myself, Dr. Pedraza. Dr. Hugh Barrera was present and scrubbed from beginning of procedure (incision) until delivery of at which time Dr. Barrera broke scrub to become primary resuscitating soaker helper for the . Dr. Yony Serrano secondarily scrubbed at time of hysterotomy closure and his assistance was indicated for the rest of the case due to complexity and acuity. Complications: other (iatrogenic prolonged exposure to general anesthesia, prolonged extraction, hemorrhage without DIC) Post-operative Condition: stable Disposition: PACU
--- NOTE | 2023-10-01 03:45 | SUR.PHASEI ---
Bedside report given to Mari.
[2023-10-01 06:08] LABS: Add Manual Diff / Slide Review NO; Basophils Absolute Auto 0 /uL (0-100); Basophils Percent Auto 0.2 % (0-2); Eosinophils Absolute Auto 0 /uL (0-450); Eosinophils Percent Auto 0.1 % (2-4); Hematocrit 32.3 % (36-46); Hemoglobin 10.9 g/dL (12.0-16.0); Lymphocytes Absolute Auto 1000 /uL (1100-4500); Lymphocytes Percent Auto 4.3 % (25-40); Mean Corpuscular HGB Conc 33.8 % (30-36); Mean Corpuscular Hemoglobin 29.2 PG (26-34); Mean Corpuscular Volume 86.5 fL (80-100); Monocytes Absolute Auto 700 /uL (0-900); Monocytes Percent Auto 3.1 % (3-14); Neutrophils Absolute Auto 21200 /uL (1500-7000); Neutrophils Percent Auto 92.3 % (50-75); Platelet Count 205 X10^3/uL (150-400); Red Blood Cell Count 3.73 X10^6/uL (4.0-5.2); Red Cell Distribution Width 14.9 % (11.6-14.8); White Blood Cell Count 22.9 X10^3/uL (4.5-11.0)
[2023-10-01 06:18] LABS: Fibrinogen 437 mg/dL (238-498)
[2023-10-01] MEDS: KETOROLAC 30 MG/ML VIAL IV ×3 (07:57→22:10)
[2023-10-01] MEDS: ACETAMINOPHEN 325 MG TABLET 650 MG PO ×2 (11:29→22:07)
[2023-10-01] MEDS: OXYCODONE IR 10 MG TABLET PO ×3 (11:30→22:07)
--- NOTE | 2023-10-01 12:34 | PM.OBPN.1 ---
Subjective - OB Subjective Patient comments: incisional pain baby status: NICU Date Patient Seen: 10/01/23 Time Patient Seen: 12:34 Interval history: 37yo [id number] POD#0 s/p PLTCS for NRFHT. She reports pain is not great, has not been out of bed yet. Has tolerated regular diet without nausea. Baby is in NICU at [facility], doing well per parent report. Exam Vital Signs (past 8 hours): Oxygen Delivery Method Room Air reviewed in OBIX, mild range BPs prior to delivery, normal since Const General: No acute distress Resp Effort & Inspection: normal respiratory effort and able to speak in complete sentences GI Other: soft, appropriately tender Skin Other: low transverse skin incision covered with LAINA dressing Neuro Cognition: normal cognition Speech: speech normal Extrem General: normal to inspection Psych Mood: congruent mood Affect: normal affect Objective Labs 10/01/23 05:54 Labs: Laboratory Results - last 24 hr 10/01/23 10/01/23 01:28 05:54 WBC 26.2 H D 22.9 H RBC 3.33 L 3.73 L Hgb 9.7 L 10.9 L Hct 28.9 L 32.3 L MCV 86.6 86.5 MCH 29.2 29.2 MCHC 33.8 33.8 RDW 14.8 14.9 H Plt Count 186 205 Neut % (Auto) Not Reportable 92.3 H Lymph % (Auto) Not Reportable 4.3 L Perkins % (Auto) Not Reportable 3.1 Eos % (Auto) Not Reportable 0.1 L Baso % (Auto) Not Reportable 0.2 Neut # (Auto) 79045 H Lymph # (Auto) Not Reportable 1000 L Perkins # (Auto) Not Reportable 700 Eos # (Auto) 0 Baso # (Auto) Not Reportable 0 Total Counted 100 Seg Neutrophils % 83.0 H Band Neutrophils % 2.0 L Lymphocytes % (Manual) 10.0 L Monocytes % (Manual) 5.0 Neutrophils # (Manual) 82893 H RBC Morphology Normal morphology Fibrinogen 389 437 Assessment & Plan Assessment and Plan (1) delivery delivered: Status: Acute (2) hemorrhage: Status: Acute Plan day: 0 plan OB: routine postop care Comments: 37yo [id number] POD#0, recovering appropriately . -encouraged to ambulate this afternoon -d/c jones once patient is ambulatory -encouraged to start pumping for baby in the NICU -if patient does well, anticipate d/c tomorrow morning Time-Based Coding :: [45min] spent with patient and on the chart (including review of chart, obtaining history, exam, reviewing outside data, placing orders, documenting exam and treatment plan, and counseling patient) on [10/01/23].
[2023-10-01] MEDS: ONDANSETRON 4 MG/2 ML INJ IV (22:10)
[2023-10-02] MEDS: OXYCODONE IR 5 MG TABLET PO ×5 (02:28→18:17)
[2023-10-02] MEDS: HYDROMORPHONE 1 MG INJ IV ×3 (02:28→13:07)
[2023-10-02] MEDS: IBUPROFEN 600 MG TABLET PO ×3 (06:03→18:17)
[2023-10-02] MEDS: ONDANSETRON 4 MG/2 ML INJ IV (06:04)
[2023-10-02] MEDS: ACETAMINOPHEN 325 MG TABLET 650 MG PO ×2 (06:04→18:18)
--- NOTE | 2023-10-02 08:42 | PM.OBDS.1 ---
Discharge Providers Provider Date of admission: 09/30/23 16:25 Discharge Date: 10/02/23 Primary care physician: NORMA Mccormick Consults: 09/30/23 18:54 Consult to Anesthesiology Urgent Comment: Consulting Provider: Cesilia Pedraza Reason for consultation: Epidural 10/01/23 02:57 Consult to Mobile Plant Operators Routine Comment: 10/01/23 03:23 Consult to [employer] Plant [employer] Routine Comment: Discharge provider: Janine Osuna DO Summary Hospital Course Date Patient Seen: 10/02/23 Time Patient Seen: 07:45 Diagnoses: Term gestation at 37+5wks Prelabor rupture of membranes Non-reassuring heart rate tracing, delivered via primary low transverse section hemorrhage Hospital Course: 37yo [id number] admitted at 37+4wks for induction of labor due to prelabor rupture of membranes. She progressed to 9cm, with an overwhelming urge to push, however the vertex was unable to descend in the pelvis. The heart rate tracing was also category II at this time, thus she underwent primary low transverse delivery. Her delivery was complicated by general anesthesia and a difficult extraction, and productive of a viable female . Her course was complicated by hemorrhage in the OR. The remainder of her course was unremarkable. On post-op day #2, she was ambulating, tolerating regular diet, voiding spontaneously with minimal lochia. Her pain was well controlled with oral medications, thus she was discharged to home on post-op day #2. Peripartum Data Infant Delivery Method: Section Procedures: External monitoring Pitocin augmentation Epidural anesthesia delivery Discharge Diagnosis (1) delivery delivered: Status: Acute (2) hemorrhage: Status: Acute Status at Discharge Cognitive/behavioral status at discharge: oriented Functional status at discharge: independent ambulation Overall status at discharge: patient is progressing back to baseline Time Spent with Patient Time attestation: Total time spent providing and/or coordinating discharge services: Time spent: Greater than 30 minutes Objective Labs 10/01/23 05:54 Exam Vital Signs (past 8 hours): Oxygen Delivery Method Room Air vitals reviewed in OBIX, within normal parameters Const General: cooperative, comfortable and No acute distress Resp Effort & Inspection: normal respiratory effort GI Inspection: normal to inspection Other: fundus firm and nontender at U-2 Skin General: no rashes or lesions noted Other: LAINA dressing covering low transverse incision without strikethrough Neuro General: patient alert and patient awake Extrem General: normal to inspection, no pedal edema and no calf tenderness Psych Mood: congruent mood Affect: normal affect Discharge Plan Discharge Plan Patient Disposition: Home Provider Discharge Comment: Take ibuprofen 800 mg every 8hrs and acetaminophen 650 mg every 6hrs for pain. Use oxycodone 5mg every 4hrs as needed for severe pain. Avoid lifting over 20lbs for at least 6 weeks. Avoid placing anything in the vagina for 6wks. Discharge orders & Medications Prescriptions: New oxycodone 5 mg Tablet 5 mg PO Q4H PRN (Reason: Pain, Moderate (4-6)) Qty: 10 0RF Continued vit-ferrous sulfat-FA 27 mg iron- 0.8 mg tablet PO Follow up/Referrals: Janine Osuna DO [Physician] - (1 week Incision check w/ Dr. Osuna: October 07 @ 11:00am 6 week Appt w/ Dr. Osuna: November 11 @ 9:45am) Diet/Activity/Treatments Diet: Diet as Tolerated Activity: Ambulate as tolerated. Skin/Wound/Dressing Care Report to your healthcare provider any signs of infection, such as:: chills, fever, increased pain, unusual drainage and unusual redness Dressing: LAINA wound care system will stay on for 1 week. You can remove it when the battery dies. Visit Report/Discharge Packet Instructions: DI for , DI for Depression, DI for Prescription Opioid Use Stand Alone Forms: Discharge: Care, Patient Portal/API, Stroke Signs & Symptoms Discharge Data Primary Care Provider: Torie Gonzalez
[2023-10-02] MEDS: DOCUSATE 100 MG CAPSULE PO (09:50)
== END 2023-10-02 19:30 | disposition home or self-care (01) | DRG 788 ==
PROVIDERS: Obstetrics & Gynecology; Admitting Provider Student in an Organized Health Care Education/Training Program; PCP Nurse Practitioner; Referring Provider Student in an Organized Health Care Education/Training Program; Visit Provider Student in an Organized Health Care Education/Training Program
PROC: 10D00Z1 Extraction of Products of Conception, Low, Open Approach (ICD-10-PCS; CPT 59514; principal; 2023-10-01 00:30)
DX: O76 Abnormality in fetal heart rate and rhythm complicating labor and delivery (principal); O65.4 Obstructed labor due to fetopelvic disproportion, unspecified; O42.02 Full-term premature rupture of membranes, onset of labor within 24 hours of rupture; Z3A.37 37 weeks gestation of pregnancy; Z37.0 Single live birth
CPT/HCPCS: 36415; 59025; 59050; 76815; 84112; 85007; 85025; 85384; 86850; 86900; 86901; G0378; G0379; J0290; J0690; J1170; J1885; J2175; J2405; J2590; J3010

== ENCOUNTER → 2024-04-15 10:13 | Outpatient (CLI) | payer OTHER, SELFPAY ==
--- NOTE | 2024-04-15 10:14 | DI.RAD.S_ITS ---
PROCEDURE: XR LUMBAR SPINE 2-3V INDICATIONS: low back pain TECHNIQUE: 3 views of the lumbar spine were acquired. COMPARISON: None. FINDINGS: Bones: 5 [id number] vertebrae are present. Mild levoconvex curvature. No vertebral body compression fractures. No suspicious bony lesions. Minimal facet hypertrophy. Soft tissues: Overlying bowel gas pattern is normal. No suspicious soft tissue calcifications. IMPRESSION: Mild levoconvex curvature. Minimal spondylosis. Approved by: Noah Madison M.D. on 04/15/2024 at 14:42
== END ==
PROVIDERS: PCP Family Medicine; Referring Provider Family Medicine; Visit Provider Family Medicine
DX: M54.50 Low back pain, unspecified (principal); M43.8X6 Other specified deforming dorsopathies, lumbar region
CPT/HCPCS: 72100

== ENCOUNTER → 2025-03-17 12:03 | Outpatient (CLI) | payer OTHER, SELFPAY ==
[2025-03-17 13:31] LABS: HCG Quantitative /Beta subunit < 2.39 mIU/mL
== END ==
PROVIDERS: PCP Family Medicine; Referring Provider Student in an Organized Health Care Education/Training Program; Visit Provider Student in an Organized Health Care Education/Training Program
DX: Z01.89 Encounter for other specified special examinations (principal)
CPT/HCPCS: 36415; 84702